=== PATIENT | female | born 1995 | race American Indian/Alaskan Native ===

== ENCOUNTER 2018-12-09 14:25 | Emergency (ER) | payer SELFPAY ==
--- NOTE | 2018-12-09 15:26 | Event Note ---
ED Screening Note Date of service: 12/09/17 Time: 15:24 ED Screening Note: complains of urianry frequency and dysuria x this morning +hematuria LMP 4 dys ago denies fever/chills or vaginal discharge This initial assessment/diagnostic orders/clinical plan/treatment(s) is/are subject to change based on patients health status, clinical progression and re- assessment by fellow clinical providers in the ED. Further treatment and workup at subsequent clinical providers discretion. Patient/guardian urged not to elope from the ED as their condition may be serious if not clinically assessed and managed. Initial orders include: UA
[2018-12-09 15:31] VITALS: BP 115/80
[2018-12-09 15:48] LABS: Bilirubin,Urine NEG (Negative); Blood,Urine LG (Negative); Color,Urine Yellow (Yellow); Mucus,Urine FEW /HPF; Urobilinogen,Urine < 2.0 mg/dL (<2.0)
[2018-12-09 15:49] LABS: RBC,Urine > 182.0 /HPF (0.0-6.0); WBC,Urine > 182.0 /HPF (0.0-6.0)
[2018-12-09 15:59] LABS: HCG Qualitative,Urine Negative (Negative)
[2018-12-09] MEDS ORDERED: LIDOCAINE-MPF (1%) 10 MG/1 ML VIAL 5 ML INFILTRATI ONE (17:51)
--- NOTE | 2018-12-09 18:02 | Emergency Department Report ---
ED Female HPI - General Chief complaint: Urogenital-Female Stated complaint: PAIN WHILE URINATING Time Seen by Provider: 12/09/18 15:24 Source: patient Mode of arrival: Ambulatory Limitations: No Limitations - History of Present Illness Initial comments: This is a 23-year-old female nontoxic, well nourished in appearance, no acute signs of distress presents to the ED with c/o of dysuria, polyuria, hemturia, and urinary frequency x1 day. Patient denies any vaginal discharge, bleeding, ulcers or lesions. Patient denies any back pain. Patient denies any pelvic or abdominal pain. Patient denies any nausea, vomiting, chest pain, shortness of breathe, fever, chills, headache, back pain, numbness, tingling, stiff neck. Patient denies any urinary symptoms. Patient denies any allergies or PMH. MD Complaint: dysuria -: This morning Radiation: non-radiating Severity: mild Severity scale (0 -10): 3 Quality: burning Consistency: constant Improves with: none Worsens with: urination Associated Symptoms: dysuria. denies: vaginal discharge, vaginal bleeding, abdominal pain, nausea/vomiting, fever/chills, headaches, loss of appetite, hematuria, rash, seizure, shortness of breath, syncope, weakness - Related Data Previous Rx's Medication Instructions Recorded Last Taken Type Sulfamethoxazole/Trimethoprim 1 each PO BID #14 tablet 12/09/18 Unknown Rx [Bactrim DS TAB] Allergies Allergy/AdvReac Type Severity Reaction Status Date / Time No Known Allergies Allergy Unverified 12/09/18 14:30 ED Review of Systems ROS: Stated complaint: PAIN WHILE URINATING Other details as noted in HPI Constitutional: denies: chills, fever Eyes: denies: eye pain, eye discharge, vision change ENT: denies: ear pain, throat pain Respiratory: denies: cough, shortness of breath, wheezing Cardiovascular: denies: chest pain, palpitations Endocrine: no symptoms reported Gastrointestinal: denies: abdominal pain, nausea, diarrhea Genitourinary: urgency, dysuria, frequency, hematuria. denies: discharge Musculoskeletal: denies: back pain, joint swelling, arthralgia Skin: denies: rash, lesions Neurological: denies: headache, weakness, paresthesias Psychiatric: denies: anxiety, depression Hematological/Lymphatic: denies: easy bleeding, easy bruising ED Past Medical Hx - Past Medical History Previous Medical History?: Yes Hx Seizures: Yes - Surgical History Past Surgical History?: No - Social History Smoking Status: Current Some Day Smoker Substance Use Type: Alcohol - Medications Home Medications: Home Medications Medication Instructions Recorded Confirmed Last Taken Type Sulfamethoxazole/Trimethoprim 1 each PO BID #14 tablet 12/09/18 Unknown Rx [Bactrim DS TAB] ED Physical Exam - General Limitations: No Limitations General appearance: alert, in no apparent distress - Head Head exam: Present: atraumatic, normocephalic - Neck Neck exam: Present: normal inspection, full ROM. Absent: tenderness, meningismus, lymphadenopathy - Respiratory Respiratory exam: Present: normal lung sounds bilaterally. Absent: respiratory distress, wheezes, rales, rhonchi, stridor, chest wall tenderness, accessory muscle use, decreased breath sounds, prolonged expiratory - GI/Abdominal GI/Abdominal exam: Present: soft, normal bowel sounds. Absent: distended, tenderness, guarding, rebound, rigid, diminished bowel sounds - Extremities Exam Extremities exam: Present: normal inspection, full ROM, normal capillary refill. Absent: tenderness - Back Exam Back exam: Present: normal inspection, full ROM. Absent: tenderness, CVA tenderness (R), CVA tenderness (L), muscle spasm, paraspinal tenderness, vertebral tenderness, rash noted - Neurological Exam Neurological exam: Present: alert, oriented X3, normal gait - Psychiatric Psychiatric exam: Present: normal affect, normal mood - Skin Skin exam: Present: warm, dry, intact, normal color. Absent: rash ED Course Vital Signs 12/09/18 14:30 Temperature 98.6 F Pulse Rate 77 Respiratory 18 Rate Blood Pressure 115/80 O2 Sat by Pulse 98 Oximetry - Reevaluation(s) Reevaluation #1: 12/09/18 18:01 Patient is speaking in full sentences with no signs of distress noted. ED Medical Decision Making - Medical Decision Making This is a 23-year-old female that presents with UTI. Patient is stable and was examined by me. UA obtained. Patient does not have any CVA tenderness. No signs or symptoms of pyelonephritis. Patient received Rocephin 1G in the ED. Patient is discharged with Bactrim. Patient was instructed to Follow-up with a primary care doctor in 3-5 days or if symptoms worsen and continue return to emergency room as soon as possible. At time of discharge, the patient does not seem toxic or ill in appearance. No acute signs of distress noted. Patient agrees to discharge treatment plan of care. No further questions noted by the patient. Critical care attestation.: If time is entered above; I have spent that time in minutes in the direct care of this critically ill patient, excluding procedure time. ED Disposition Clinical Impression: UTI (urinary tract infection) Qualifiers: Urinary tract infection type: acute cystitis Hematuria presence: with hematuria Qualified Code(s): N30.01 - Acute cystitis with hematuria Disposition: TO HOME OR SELFCARE Is pt being admited?: No Does the pt Need Aspirin: No Condition: Stable Instructions: Urinary Tract Infection in Women (ED) Additional Instructions: Follow-up with a primary care doctor in 3-5 days or if symptoms worsen and continue return to emergency room as soon as possible. Prescriptions: Sulfamethoxazole/Trimethoprim [Bactrim DS TAB] 1 each PO BID #14 tablet Referrals: PRIMARY MD KATHRYN [Referring] - 3-5 Days KATI WALKER MD [Staff Physician] - 3-5 Days [facility] [Outside] - 3-5 Days [facility] [Outside] - 3-5 Days Forms: Work/School Release Form(ED)
== END 2018-12-09 18:37 | disposition home or self-care (01) ==
LOC: ED 14:25
DX: N39.0 Urinary tract infection, site not specified (principal); F17.200 Nicotine dependence, unspecified, uncomplicated; Z79.899 Other long term (current) drug therapy
CPT/HCPCS: 81001; 81025; 96372; 99283; J0696

== ENCOUNTER 2020-04-04 19:48 | Emergency (ER) | payer SELFPAY ==
--- NOTE | 2020-04-04 20:36 | Event Note ---
ED Screening Note Date of service: 04/04/20 Time: 20:26 ED Screening Note: Pt c/o head x 2-3 days hx of seizures-states roommate witnessed seizure last night; not currently on seizure meds LEON a 08/19 inseverity also c/o nausea and abdominal pain-sharp and burning in nature +diarrhea denies CP or SOB or fever This initial assessment/diagnostic orders/clinical plan/treatment(s) is/are subject to change based on patients health status, clinical progression and re- assessment by fellow clinical providers in the ED. Further treatment and workup at subsequent clinical providers discretion. Patient/guardian urged not to elope from the ED as their condition may be serious if not clinically assessed and managed. Initial orders include: labs
[2020-04-04 21:01] LABS: Basophils % (Auto) 0.3 % (0.0-1.8); Hematocrit 40.9 % (30.3-42.9); Hemoglobin 13.4 gm/dl (10.1-14.3); Lymphocytes # (Auto) 1.4 K/mm3 (1.2-5.4); Lymphocytes % (Auto) 14.7 % (13.4-35.0); Mean Corpuscular HGB Conc 33 % (30-34); Mean Corpuscular Volume 85 fl (79-97); Monocytes # (Auto) 0.9 K/mm3 (0.0-0.8); Monocytes % (Auto) 9.2 % (0.0-7.3); Platelet Count 200 K/mm3 (140-440); Red Blood Count 4.83 M/mm3 (3.65-5.03)
[2020-04-04 21:05] LABS: Alanine Aminotransferase 12 units/L (7-56); Albumin 4.6 g/dL (3.9-5); Blood Urea Nitrogen 8 mg/dL (7-17); Calcium 9.2 mg/dL (8.4-10.2); Hemolysis Index 3
[2020-04-04 21:06] LABS: BUN/Creatinine Ratio 11
[2020-04-04] MEDS ORDERED: LACTATED RINGERS 1,000 ML IV ONE (21:14)
[2020-04-04] MEDS ORDERED: METOCLOPRAMIDE 10 MG/2 ML INJ IV ONE (21:15)
[2020-04-04] MEDS ORDERED: diphenhydrAMINE 50 MG/ML VIAL IV ONE (21:15)
--- NOTE | 2020-04-04 21:16 | Emergency Department Report ---
ED General Adult HPI - General Chief complaint: Headache Stated complaint: ABDOMINAL PAIN/HOT FLASHES/BODYACHE PUI?: No Time Seen by Provider: 04/04/20 20:25 Source: patient, RN notes reviewed Mode of arrival: Ambulatory Limitations: No Limitations - History of Present Illness Initial comments: The patient was evaluated in the emergency department for symptoms described in the history of present illness. He/she was evaluated in the context of the global COVID-19 pandemic, which necessitated consideration that the patient mi ght be at risk for infection with the virus that causes COVID-19. Institutional protocols and algorithms that pertain to the evaluation of patients at risk for COVID-19 are in a state of rapid change based on information released by regulatory bodies including the CDC and federal and state organizations. These policies and algorithms were followed during the patient's care in the emergency department. Please note that these policies, procedures and recommendations changed on a rapid basis. During the history and physical examination, I am chaperoned by Produce Department Manager Dina Constantino The patient is a 24-year-old female. She is not known to myself previously. She has had "seizures" in the past, but she does not know she has a formal diagnosis of epilepsy, or nonepileptiform psychogenic seizures. The patient reports she has been seen at multiple hospitals in the past, for "seizures", does not take any antiepileptic drugs, has not been able to follow- up with an outpatient neurologist secondary to insurance issues. She further states that she is not and reports that she has not delivered or given in the past 2 months. The patient presents to the ER today with complaint of body aches, abdominal pain, possible seizure/convulsion, and headache. The patient's last convulsive event was approximately 2 to 3 months ago. She states "I typically do not go to hospitals, I just roll with it." The patient states she has a frontal and bitemporal headache, present for the p ast 2 to 3 days. This is similar to prior headaches. The headache is atraumatic, not sudden, thunderclap in nature, not maximal in intensity, not the worst headache of her life. She reports that she may have had a seizure or convulsion today, and afterwards, "my whole body is hurting and achy." No loss of vision, no sore throat, no neck pain, no chest pain. Positive supraumbilical and left upper quadrant abdominal pain. No dysuria. Headache throbbing, aching, constant. Body aches of throbbing, aching and constant. Abdominal pain constant, throbbing, sharp and aching. Pain increases with palpation and range of motion of the extremities and abdomen. The headache at this point time does not have exacerbating or relieving factors that she is aware of. -: Sudden, days(s) Location: face, abdomen, left, right, upper extremity, lower extremity Radiation: other Quality: other Consistency: other Improves with: other Worsens with: other - Related Data Previous Rx's Medication Instructions Recorded Last Taken Type Acetaminophen [Non-Aspirin Extra 500 mg PO Q6HR PRN #30 tablet 04/04/20 Unknown Rx Strength] Amoxicillin/Potassium Clav 1 each PO BID #14 tablet 04/04/20 Unknown Rx [Augmentin 875-125 Tablet] Ibuprofen [Motrin] 600 mg PO Q8H PRN #30 tablet 04/04/20 Unknown Rx Metoclopramide [Reglan] 10 mg PO QID PRN #30 tablet 04/04/20 Unknown Rx levETIRAcetam [Keppra TAB] 500 mg PO BID #60 tablet 04/04/20 Unknown Rx Allergies Allergy/AdvReac Type Severity Reaction Status Date / Time No Known Allergies Allergy Verified 04/04/20 20:22 ED Review of Systems ROS: Stated complaint: ABDOMINAL PAIN/HOT FLASHES/BODYACHE Other details as noted in HPI Constitutional: malaise. denies: fever Eyes: denies: eye discharge, vision change ENT: denies: epistaxis Respiratory: denies: cough Cardiovascular: denies: chest pain, syncope Gastrointestinal: abdominal pain Genitourinary: denies: dysuria Musculoskeletal: back pain, arthralgia, myalgia Neurological: headache, weakness. denies: numbness, paresthesias Hematological/Lymphatic: denies: easy bleeding ED Past Medical Hx - Past Medical History Previous Medical History?: Yes Hx Seizures: Yes - Surgical History Past Surgical History?: No - Social History Smoking Status: Current Some Day Smoker Substance Use Type: None - Medications Home Medications: Home Medications Medication Instructions Recorded Confirmed Last Taken Type Acetaminophen [Non-Aspirin Extra 500 mg PO Q6HR PRN #30 tablet 04/04/20 Unknown Rx Strength] Amoxicillin/Potassium Clav 1 each PO BID #14 tablet 04/04/20 Unknown Rx [Augmentin 875-125 Tablet] Ibuprofen [Motrin] 600 mg PO Q8H PRN #30 tablet 04/04/20 Unknown Rx Metoclopramide [Reglan] 10 mg PO QID PRN #30 tablet 04/04/20 Unknown Rx levETIRAcetam [Keppra TAB] 500 mg PO BID #60 tablet 04/04/20 Unknown Rx ED Physical Exam - General Limitations: No Limitations General appearance: alert, in no apparent distress, obese - Head Head exam: Present: atraumatic, normocephalic - Eye Eye exam: Present: normal appearance, PERRL, EOMI, other (Visual acuity intact to finger counting, color perception, reading at a close distance). Absent: nystagmus - ENT ENT exam: Present: normal exam, normal orophraynx, mucous membranes moist, TM's normal bilaterally, normal external ear exam, other (There is no nasal septal hematoma. There is no hemotympanum) - Neck Neck exam: Present: normal inspection, full ROM. Absent: tenderness, meningismus - Respiratory Respiratory exam: Present: normal lung sounds bilaterally. Absent: respiratory distress, wheezes, rales, rhonchi, stridor, decreased breath sounds - Cardiovascular Cardiovascular Exam: Present: regular rate, normal rhythm, normal heart sounds. Absent: bradycardia, tachycardia, irregular rhythm, systolic murmur, diastolic murmur, rubs, gallop - GI/Abdominal GI/Abdominal exam: Present: soft, tenderness, other (There is left midabdomen tenderness, without rebound, guarding or peritoneal sign.). Absent: distended, guarding, rebound, rigid, pulsatile mass - Extremities Exam Extremities exam: Present: normal inspection, full ROM, other (2+ pulses noted in the bilateral upper and lower extremities. There is no palpable cord. negative Homans sign. Muscular compartments are soft. The pelvis is stable.). Absent: pedal edema, calf tenderness - Back Exam Back exam: Present: normal inspection, full ROM. Absent: tenderness, CVA tenderness (R), CVA tenderness (L), paraspinal tenderness, vertebral tenderness - Neurological Exam Neurological exam: Present: alert, oriented X3, other (No facial droop. Tongue midline. Extraocular movements intact bilaterally. Facial sensation intact to light touch in V1, V2, V3 distribution bilaterally. 5 and a 5 strength in 4 extremities. Sensation intact to light touch in 4 extremities.). Absent: motor sensory deficit - Psychiatric Psychiatric exam: Present: normal affect, normal mood - Skin Skin exam: Present: warm, dry, intact, normal color. Absent: rash ED Course Vital Signs 04/04/20 04/04/20 04/04/20 20:23 21:55 22:30 Temperature 99.2 F Pulse Rate 65 Respiratory 16 18 Rate Blood Pressure 126/75 119/75 O2 Sat by Pulse 95 100 Oximetry 04/04/20 23:02 Temperature Pulse Rate Respiratory 18 Rate Blood Pressure O2 Sat by Pulse Oximetry - Reevaluation(s) Reevaluation #1: 04/04/20 22:13 Differential diagnosis, including but not limited to: Migraine headache, tension headache, cluster headache, structural intracranial lesion, seizure, pseudoseizure, side effect of drug, colitis, diverticulitis, obstruction, constipation Assessment and plan: 24-year-old female, who was afebrile, with reassuring vital signs, clinically sober, with a GCS of 15, no meningeal signs, with 2 complaints. Complaints #1, headache/possible convulsion Place patient on satellite project site monitor. Obtain CT scan of the brain. Initiate seizure precautions, EKG fairly unremarkable, so far, diagnostic laboratory studies unremarkable. Patient has a GCS of 15, with a nonfocal motor exam, there is no trauma. Reassess. Complaint #2, abdominal pain. Labs, EKG, urinalysis, treat symptoms, obtain CT scan of the abdomen pelvis. Reassess. Patient reports no recreational drug use. She is clinically sober at this time. Urine and serum toxicology studies pending at this time. Of note, during multiple repeat evaluations, patient noted to be talking to an individual on her tablet device, not in any acute distress. Reevaluation #2: 04/04/20 23:03 CT scan of the brain is negative for acute findings. CT scan abdomen pelvis suggest possible cecal colitis. Urinalysis not consistent with infectious pathology. Patient reports no drug use, but urine toxicology screen suggest cannabis metabolites. Patient observed in this ER for about 3 hours without clinical decompensation. Suspect that patient may be having convulsions secondary to cannabis consumption. However, given that she reports multiple convulsions, no formal neurology follow-up, we will initiate Keppra therapy. We will also discharged with antibiotic therapy, pain medication, nausea medication, and instructions to follow-up. I will also give the patient an affordable prescription card. She is also advised to not drive or operate motor vehicles. Also specifically counseled on need to closely follow-up with outpatient GI to exclude cancer, tumor, malignancy. Patient still playing on tablet device, not any acute distress ED Medical Decision Making - Lab Data Result diagrams: 04/04/20 20:33 04/04/20 20:33 Vital Signs 04/04/20 04/04/20 20:23 21:55 Temperature 99.2 F Pulse Rate 65 Respiratory 16 18 Rate Blood Pressure 126/75 O2 Sat by Pulse 95 Oximetry Lab Results 04/04/20 04/04/20 04/04/20 Range/Units 20:33 20:33 20:33 WBC 9.6 (4.5-11.0) K/mm3 RBC 4.83 (3.65-5.03) M/mm3 Hgb 13.4 (10.1-14.3) gm/dl Hct 40.9 (30.3-42.9) % MCV 85 (79-97) fl MCH 28 (28-32) pg MCHC 33 (30-34) % RDW 14.0 (13.2-15.2) % Plt Count 200 (140-440) K/mm3 Lymph % (Auto) 14.7 (13.4-35.0) % [place] % (Auto) 9.2 H (0.0-7.3) % Eos % (Auto) 0.0 (0.0-4.3) % Baso % (Auto) 0.3 (0.0-1.8) % Lymph # (Auto) 1.4 (1.2-5.4) K/mm3 [place] # (Auto) 0.9 H (0.0-0.8) K/mm3 Eos # (Auto) 0.0 (0.0-0.4) K/mm3 Baso # (Auto) 0.0 (0.0-0.1) K/mm3 Seg Neutrophils % 75.8 H (40.0-70.0) % Seg Neutrophils # 7.3 (1.8-7.7) K/mm3 Sodium 136 L (137-145) mmol/L Potassium 3.7 (3.6-5.0) mmol/L Chloride 99.5 (98-107) mmol/L Carbon Dioxide 26 (22-30) mmol/L Anion Gap 14 mmol/L BUN 8 (7-17) mg/dL Creatinine 0.7 (0.6-1.2) mg/dL Estimated GFR > 60 ml/min BUN/Creatinine Ratio 11 % Glucose 79 (65-100) mg/dL Calcium 9.2 (8.4-10.2) mg/dL Magnesium (1.7-2.3) mg/dL Total Bilirubin 0.40 (0.1-1.2) mg/dL AST 13 (5-40) units/L ALT 12 (7-56) units/L Alkaline Phosphatase 76 (35-129) units/L Total Creatine Kinase (30-135) units/L Total Protein 7.5 (6.3-8.2) g/dL Albumin 4.6 (3.9-5) g/dL Albumin/Globulin Ratio 1.6 % Lipase 12 L (13-60) units/L HCG, Qual Negative (Negative) Urine Color (Yellow) Urine Turbidity (Clear) Urine pH (5.0-7.0) Ur Specific [place] (1.003-1.030) Urine Protein (Negative) mg/dL Urine Glucose (UA) (Negative) mg/dL Urine Ketones (Negative) mg/dL Urine Blood (Negative) Urine Nitrite (Negative) Urine Bilirubin (Negative) Urine Urobilinogen (<2.0) mg/dL Ur Leukocyte Esterase (Negative) Urine WBC (Auto) (0.0-6.0) /HPF Urine RBC (Auto) (0.0-6.0) /HPF U Epithel Cells (Auto) (0-13.0) /HPF Urine Mucus /HPF Salicylates (2.8-20.0) mg/dL Acetaminophen (10.0-30.0) ug/mL 04/04/20 04/04/20 04/04/20 Range/Units 20:33 20:33 20:33 WBC (4.5-11.0) K/mm3 RBC (3.65-5.03) M/mm3 Hgb (10.1-14.3) gm/dl Hct (30.3-42.9) % MCV (79-97) fl MCH (28-32) pg MCHC (30-34) % RDW (13.2-15.2) % Plt Count (140-440) K/mm3 Lymph % (Auto) (13.4-35.0) % [place] % (Auto) (0.0-7.3) % Eos % (Auto) (0.0-4.3) % Baso % (Auto) (0.0-1.8) % Lymph # (Auto) (1.2-5.4) K/mm3 [place] # (Auto) (0.0-0.8) K/mm3 Eos # (Auto) (0.0-0.4) K/mm3 Baso # (Auto) (0.0-0.1) K/mm3 Seg Neutrophils % (40.0-70.0) % Seg Neutrophils # (1.8-7.7) K/mm3 Sodium (137-145) mmol/L Potassium (3.6-5.0) mmol/L Chloride (98-107) mmol/L Carbon Dioxide (22-30) mmol/L Anion Gap mmol/L BUN (7-17) mg/dL Creatinine (0.6-1.2) mg/dL Estimated GFR ml/min BUN/Creatinine Ratio % Glucose (65-100) mg/dL Calcium (8.4-10.2) mg/dL Magnesium 1.70 (1.7-2.3) mg/dL Total Bilirubin (0.1-1.2) mg/dL AST (5-40) units/L ALT (7-56) units/L Alkaline Phosphatase (35-129) units/L Total Creatine Kinase (30-135) units/L Total Protein (6.3-8.2) g/dL Albumin (3.9-5) g/dL Albumin/Globulin Ratio % Lipase (13-60) units/L HCG, Qual (Negative) Urine Color (Yellow) Urine Turbidity (Clear) Urine pH (5.0-7.0) Ur Specific [place] (1.003-1.030) Urine Protein (Negative) mg/dL Urine Glucose (UA) (Negative) mg/dL Urine Ketones (Negative) mg/dL Urine Blood (Negative) Urine Nitrite (Negative) Urine Bilirubin (Negative) Urine Urobilinogen (<2.0) mg/dL Ur Leukocyte Esterase (Negative) Urine WBC (Auto) (0.0-6.0) /HPF Urine RBC (Auto) (0.0-6.0) /HPF U Epithel Cells (Auto) (0-13.0) /HPF Urine Mucus /HPF Salicylates 4.9 (2.8-20.0) mg/dL Acetaminophen < 5.0 L (10.0-30.0) ug/mL 04/04/20 04/04/20 Range/Units 20:33 20:42 WBC (4.5-11.0) K/mm3 RBC (3.65-5.03) M/mm3 Hgb (10.1-14.3) gm/dl Hct (30.3-42.9) % MCV (79-97) fl MCH (28-32) pg MCHC (30-34) % RDW (13.2-15.2) % Plt Count (140-440) K/mm3 Lymph % (Auto) (13.4-35.0) % [place] % (Auto) (0.0-7.3) % Eos % (Auto) (0.0-4.3) % Baso % (Auto) (0.0-1.8) % Lymph # (Auto) (1.2-5.4) K/mm3 [place] # (Auto) (0.0-0.8) K/mm3 Eos # (Auto) (0.0-0.4) K/mm3 Baso # (Auto) (0.0-0.1) K/mm3 Seg Neutrophils % (40.0-70.0) % Seg Neutrophils # (1.8-7.7) K/mm3 Sodium (137-145) mmol/L Potassium (3.6-5.0) mmol/L Chloride (98-107) mmol/L Carbon Dioxide (22-30) mmol/L Anion Gap mmol/L BUN (7-17) mg/dL Creatinine (0.6-1.2) mg/dL Estimated GFR ml/min BUN/Creatinine Ratio % Glucose (65-100) mg/dL Calcium (8.4-10.2) mg/dL Magnesium (1.7-2.3) mg/dL Total Bilirubin (0.1-1.2) mg/dL AST (5-40) units/L ALT (7-56) units/L Alkaline Phosphatase (35-129) units/L Total Creatine Kinase 168 H (30-135) units/L Total Protein (6.3-8.2) g/dL Albumin (3.9-5) g/dL Albumin/Globulin Ratio % Lipase (13-60) units/L HCG, Qual (Negative) Urine Color Yellow (Yellow) Urine Turbidity Slightly-cloudy (Clear) Urine pH 5.0 (5.0-7.0) Ur Specific [place] 1.027 (1.003-1.030) Urine Protein <15 mg/dl (Negative) mg/dL Urine Glucose (UA) Neg (Negative) mg/dL Urine Ketones Neg (Negative) mg/dL Urine Blood Neg (Negative) Urine Nitrite Neg (Negative) Urine Bilirubin Neg (Negative) Urine Urobilinogen 2.0 (<2.0) mg/dL Ur Leukocyte Esterase Tr (Negative) Urine WBC (Auto) 4.0 (0.0-6.0) /HPF Urine RBC (Auto) 4.0 (0.0-6.0) /HPF U Epithel Cells (Auto) 18.0 H (0-13.0) /HPF Urine Mucus 3+ /HPF Salicylates (2.8-20.0) mg/dL Acetaminophen (10.0-30.0) ug/mL - EKG Data -: EKG Interpreted by Nh EKG shows normal: sinus rhythm Rate: normal - EKG Data When compared to previous EKG there are: previous EKG unavailable 04/04/20 22:09 There is no prior EKG available for comparison. Sinus rhythm, 88 bpm. Normal axis, normal intervals, borderline left ventricular voltage. This is an unremarkable EKG, the EKG is not consistent with a STEMI. - Radiology Data Radiology results: pending, report reviewed, image reviewed interpreted by me: CT ABDOMEN AND PELVIS WITH CONTRAST INDICATION / CLINICAL INFORMATION: acute abd pain. TECHNIQUE: Axial CT images were obtained through the abdomen and pelvis after IV contrast. All CT scans at this location are performed using CT dose reduction for ALARA by means of automated exposure control. COMPARISON: None available. FINDINGS: LOWER CHEST: No significant abnormality LIVER: No significant abnormality GALLBLADDER/BILIARY TREE: No significant abnormality PANCREAS: No significant abnormality SPLEEN: No significant abnormality ADRENALS: No significant abnormality KIDNEYS / URETER: No significant abnormality URINARY BLADDER: Bladder is decompressed, limiting further evaluation. REPRODUCTIVE ORGANS: Uterus is unremarkable for age. There is a 1.8 cm crenated structure in the left adnexa, most compatible with corpus luteum cyst. Trace bland appearing free fluid in the pelvis is likely physiologic. STOMACH / SMALL BOWEL: Stomach and small bowel are normal in caliber. No evidence of bowel inflammation. COLON: There is mild mural thickening of the cecum. The appendix is normal in caliber. LYMPH NODES: No significant adenopathy. VASCULATURE: No significant abnormality. OTHER: No free air, free fluid, or focal fluid collection is identified. SKELETAL SYSTEM: No acute osseous findings. IMPRESSION: 1. Mild mural thickening of the cecum, may reflect infectious or inflammatory colitis. 2. Left ovarian corpus luteum cyst. There is trace bland appearing free fluid in the pelvis, which is likely physiologic. 3. Otherwise, no acute abnormality of the abdomen or pelvis. Signer Name: Brian Le MD Signed: 04/04/2020 9:26 PM Workstation Name: [id number] CT HEAD WITHOUT CONTRAST INDICATION / CLINICAL INFORMATION: convulsion, sz, headache. TECHNIQUE: All CT scans at this location are performed using CT dose reduction for ALARA by means of automated exposure control. COMPARISON: None available. FINDINGS: BRAIN PARENCHYMA: No acute intracranial hemorrhage. No evidence of recent infarct. No mass effect or midline shift. VENTRICULAR SYSTEM/EXTRA-AXIAL SPACES: Ventricles are normal for age. No extra-axial fluid collection. ORBITS: Normal as visualized. SKELETAL SYSTEM/SOFT TISSUES: Normal bones and soft tissues. PARANASAL SINUSES/MASTOID AIR CELLS: No significant abnormality. ADDITIONAL FINDINGS: None. IMPRESSION: 1. No acute intracranial abnormality. Signer Name: Brian Le MD Signed: 04/04/2020 9:22 PM Workstation Name: [id number] Critical care attestation.: If time is entered above; I have spent that time in minutes in the direct care of this critically ill patient, excluding procedure time. ED Disposition Clinical Impression: Headache, Convulsion, Myalgia, Abdominal pain Disposition: - TO HOME OR SELFCARE Is pt being admited?: No Does the pt Need Aspirin: No Condition: Good Instructions: Seizure, Adult, Colitis Additional Instructions: We recommend that the patient not drive or operate motor vehicles for the next 6 months. Recommend that the patient take the pain medication, acetaminophen and ibuprofen, as needed for headache and abdominal pain. Patient may take the Reglan medication as needed for nausea, vomiting and for headache. Because we do not know if patient has a true history of seizure or epilepsy, recommend that patient take the Keppra medication as needed/prescribed. Recommend follow-up with a neurologist, such as Dr. Silva, within the next [address] scan of the abdomen pelvis suggested inflammation in the large intestine, cecum. Recommend follow-up with a sports announcer, such as [facility], within the next 3 to 4 weeks. It is very important to follow-up with outpatient gastroenterology for reassessment, and for reevaluation. Not following up as recommended may result in undiagnosed cancer, tumor, malignancy of the large intestine or otherwise. We recommend follow-up with a primary care doctor, such as Dr. Saleh, Within the next 2 weeks. Take the antibiotics as directed, do not consume alcohol, consume marijuana, or recreational drugs. Do not take metformin medication for the next 2 days if patient takes this medication. Please return to the emergency room right away with new pain, worsened pain, migration of pain, projectile vomiting, change in mental status, confusion, inability to tolerate liquid feeds, new, worsened or different symptoms not present on the initial emergency room evaluation. Prescriptions: Amoxicillin/Potassium Clav [Augmentin 875-125 Tablet] 1 each PO BID #14 tablet levETIRAcetam [Keppra TAB] 500 mg PO BID #60 tablet Ibuprofen [Motrin] 600 mg PO Q8H PRN #30 tablet PRN Reason: Pain Acetaminophen [Non-Aspirin Extra Strength] 500 mg PO Q6HR PRN #30 tablet PRN Reason: Pain , Severe (7-10) Metoclopramide [Reglan] 10 mg PO QID PRN #30 tablet PRN Reason: Nausea Referrals: FAISAL SALEH MD [Staff Physician] - 3-5 Days WESLEY SILVA MD [Referring] - 7-10 days [facility] [Provider Group] - 7-10 days
[2020-04-04] MEDS ORDERED: fentaNYL 100 MCG/2 ML INJ IV ONE (21:29)
[2020-04-04 21:35] LABS: Bilirubin,Urine NEG (Negative); Blood,Urine NEG (Negative); Color,Urine Yellow (Yellow); Mucus,Urine 3+ /HPF; Protein,Urine <15 mg/dL mg/dL (Negative)
[2020-04-04 22:25] LABS: Amphetamine Screen,Urine Negative; Benzodiazepines Screen,Urine Negative; Cocaine Screen,Urine Negative; Methadone Screen,Urine Negative; Opiate Screen,Urine Negative
--- NOTE | 2020-04-04 22:27 | Cat Scan Report ---
CT HEAD WITHOUT CONTRAST INDICATION / CLINICAL INFORMATION: convulsion, sz, headache. TECHNIQUE: All CT scans at this location are performed using CT dose reduction for ALARA by means of automated exposure control. COMPARISON: None available. FINDINGS: BRAIN PARENCHYMA: No acute intracranial hemorrhage. No evidence of recent infarct. No mass effect or midline shift. VENTRICULAR SYSTEM/EXTRA-AXIAL SPACES: Ventricles are normal for age. No extra-axial fluid collection . ORBITS: Normal as visualized. SKELETAL SYSTEM/SOFT TISSUES: Normal bones and soft tissues. PARANASAL SINUSES/MASTOID AIR CELLS: No significant abnormality. ADDITIONAL FINDINGS: None. IMPRESSION: 1. No acute intracranial abnormality. Signer Name: Brian Le MD Signed: 04/04/2020 10:22 PM Workstation Name: [id number]
--- NOTE | 2020-04-04 22:30 | Cat Scan Report ---
CT ABDOMEN AND PELVIS WITH CONTRAST INDICATION / CLINICAL INFORMATION: acute abd pain. TECHNIQUE: Axial CT images were obtained through the abdomen and pelvis after IV contrast. All CT sc ans at this location are performed using CT dose reduction for ALARA by means of automated exposure c ontrol. COMPARISON: None available. FINDINGS: LOWER CHEST: No significant abnormality LIVER: No significant abnormality GALLBLADDER/BILIARY TREE: No significant abnormality PANCREAS: No significant abnormality SPLEEN: No significant abnormality ADRENALS: No significant abnormality KIDNEYS / URETER: No significant abnormality URINARY BLADDER: Bladder is decompressed, limiting further evaluation. REPRODUCTIVE ORGANS: Uterus is unremarkable for age. There is a 1.8 cm crenated structure in the left adnexa, most compatible with corpus luteum cyst. Trace bland appearing free fluid in the pelvis is l ikely physiologic. STOMACH / SMALL BOWEL: Stomach and small bowel are normal in caliber. No evidence of bowel inflammati on. COLON: There is mild mural thickening of the cecum. The appendix is normal in caliber. LYMPH NODES: No significant adenopathy. VASCULATURE: No significant abnormality. OTHER: No free air, free fluid, or focal fluid collection is identified. SKELETAL SYSTEM: No acute osseous findings. IMPRESSION: 1. Mild mural thickening of the cecum, may reflect infectious or inflammatory colitis. 2. Left ovarian corpus luteum cyst. There is trace bland appearing free fluid in the pelvis, which is likely physiologic. 3. Otherwise, no acute abnormality of the abdomen or pelvis. Signer Name: Brian Le MD Signed: 04/04/2020 10:26 PM Workstation Name: [id number]
[2020-04-04 22:50] LABS: Cannabinoid Screen,Urine PRESUMPTIVE POSITIVE
[2020-04-04] MEDS ORDERED: AMOXICILLIN/K CLAV 875/125MG TAB PO ONE (22:53)
[2020-04-04] MEDS ORDERED: KETOROLAC 30 MG/1 ML INJ IV ONE (22:53)
[2020-04-04] MEDS ORDERED: levETIRAcetam 500 MG in DEXTROSE 5% IN WATER 100 ML IV ONE (23:35)
[2020-04-04 23:57] VITALS: BP 122/76
== END 2020-04-05 | disposition home or self-care (01) ==
LOC: ED 19:48
DX: R51.9 Headache, unspecified (principal); R56.9 Unspecified convulsions; M79.10 Myalgia, unspecified site; R10.9 Unspecified abdominal pain; F17.200 Nicotine dependence, unspecified, uncomplicated; Z79.899 Other long term (current) drug therapy; Z86.69 Personal history of other diseases of the nervous system and sense organs
CPT/HCPCS: 36415; 70450; 74177; 80053; 80307; 81001; 82550; 83690; 83735; 84703; 85025; 93005; 96361; 96365; 96375; 99284; J1200; J1885; J1953; J2765; J3010; J7120; Q9967; 80320; G0480